=== PATIENT | female | born 1975 | race Caucasian/White ===

== ENCOUNTER 2016-12-04 14:09 | Emergency (ER) | payer OTHER ==
[~2016-12-04 14:09] MED LIST: ALBUTEROL IN200 PUFF INH; ALBUTEROL0.63 MG/3 NEB; CHILDRENS CHEWA81 MG PO; CLARITIN10 MG PO; COREG6.25 MG PO; HYDROCHLOROTH12.5 MG PO; LASIX40 MG PO; LEVAQUIN500 MG PO; LIPITOR10 MG PO; MAGNESIUM OXID400 MG PO; MS CONTIN15 MG PO; NEURONTIN800 MG PO; NITROGLYCERIN0.4 MG SL; NORVASC5 MG PO; PERCOCET 10-321 EACH PO; SINGULAIR10 MG PO; SPIRONOLACTONE25 MG PO; SYMBICORT 16060 PUFF INH; THEOPHYLLINE C300 MG PO; TYLENOL325 M1 PO; VALIUM5 MG PO; ZANTAC300 MG PO; ZEBETA5 MG PO; ZESTRIL40 MG PO; ZOCOR10 MG PO; ZOFRAN4 MG PO
[2016-12-04 14:40] LABS: BASO % 0.8 % (0.1-1.2); EOS # 0.1 10_X3_uL (0.0-0.4); EOS % 1.3 % (0.7-5.8); GRAN % 52.4 % (34.0-71.1); HEMATOCRIT 35.3 % (34-45); HEMOGLOBIN 11.9 g/dL (11.2-15.7); LYMPH # 1.2 10_X3_uL (1.2-3.7); LYMPH % 32.5 % (19.3-51.7); MEAN CORPUSCULAR HGB CONC 33.7 g/dL (32.0-36.0); MEAN CORPUSCULAR VOLUME 85.9 fL (79-95); MEAN PLATELET VOLUME 10.3 fl (7.5-11.5); MONO # 0.5 10_X3_uL (0.2-0.9); PLATELET COUNT 196 x10_3/uL (182-369); RED BLOOD COUNT 4.11 x10_6/uL (3.9-5.2); RED CELL DISTRIBUTION WIDTH 14.5 % (11.7-14.4); WHITE BLOOD COUNT 3.8 x10_3/uL (4.0-10.0)
[2016-12-04 14:53] LABS: PARTIAL THROMBOPLASTIN TIME 25.2 SECONDS (21.3-29.3); PROTHROMBIN TIME (PATIENT) 10.4 SECONDS (9.9-11.1)
[2016-12-04 14:54] LABS: ALBUMIN 3.7 gm/dL (3.4-5.0); ALKALINE PHOSPHATASE 64 U/L (50-136); ALT/SGPT 16 U/L (3.5-33.9); AMYLASE 33 U/L (15.62-74.58); AST/SGOT 16 U/L (7.04-26.96); BILIRUBIN,TOTAL 0.25 mg/dL (0.0-1.0); BLOOD UREA NITROGEN 8 mg/dL (7-18); CALCIUM 9.1 mg/dL (8.7-10.7); CARBON DIOXIDE 20 mmol/L (21-32); CREATININE 0.6 mg/dL (0.6-1.3); GLUCOSE,RANDOM 131 mg/dL (70-99); LIPASE 14 U/L (6.75-60.75); POTASSIUM 3.7 mmol/L (3.5-5.1); SODIUM 140 mmol/L (136-145); TOTAL PROTEIN 7.6 gm/dL (6.4-8.2)
== END 2016-12-04 17:13 | disposition home or self-care (01) ==
LOC: ER 14:09
PROVIDERS: Emergency Medicine
DX: K92.0 Hematemesis (principal); R19.04 Left lower quadrant abdominal swelling, mass and lump; I10 Essential (primary) hypertension; J45.909 Unspecified asthma, uncomplicated; Z95.810 Presence of automatic (implantable) cardiac defibrillator; Z88.0 Allergy status to penicillin
CPT/HCPCS: 36415; 80053; 82150; 83690; 85025; 85610; 85730; 96372; 99283-25

== ENCOUNTER 2016-12-10 12:45 | Emergency (ER) | payer OTHER | END 2016-12-10 14:48 | disposition home or self-care (01) | LOC: ER 12:45 | DX: M17.12 Unilateral primary osteoarthritis, left knee (principal); M25.562 Pain in left knee; M25.462 Effusion, left knee | CPT/HCPCS: 73700; 81025; 96372; 99070; 99283-25; J1170 ==

== ENCOUNTER 2017-02-19 12:00 | Emergency (ER) | payer OTHER | END 2017-02-19 15:05 | disposition home or self-care (01) | LOC: ER 12:00 | DX: M25.562 Pain in left knee (principal); W19.XXXA Unspecified fall, initial encounter; Y92.009 Unspecified place in unspecified non-institutional (private) residence as the place of occurrence of the external cause; I10 Essential (primary) hypertension; Z98.890 Other specified postprocedural states; Z79.899 Other long term (current) drug therapy; Z88.0 Allergy status to penicillin | CPT/HCPCS: 96374; 96375; 96376; 99070; 99283-25 ==

== ENCOUNTER 2017-03-05 16:27 | Emergency (ER) | payer OTHER | END 2017-03-05 21:11 | disposition home or self-care (01) | LOC: ER 16:27 | DX: M25.562 Pain in left knee (principal); R51 Headache; I10 Essential (primary) hypertension; Z76.5 Malingerer [conscious simulation]; Z88.0 Allergy status to penicillin | CPT/HCPCS: 96372; 99282-25 ==

== ENCOUNTER 2017-03-19 12:35 | Emergency (ER) | payer OTHER | END 2017-03-19 13:47 | disposition home or self-care (01) | LOC: ER 12:35 | DX: M54.5 Low back pain (principal); M25.562 Pain in left knee; Z98.890 Other specified postprocedural states; X50.0XXA Overexertion from strenuous movement or load, initial encounter; Z79.899 Other long term (current) drug therapy; Z88.0 Allergy status to penicillin | CPT/HCPCS: 99282 ==

== ENCOUNTER 2017-03-22 21:24 | Observation (INO) | payer OTHER ==
[~2017-03-22] VITALS: Ht 165.1 cm; Wt 117.0 kg
[2017-03-23 00:30] LABS: BASO # 0.1 10_X3_uL (0.0-0.1); BASO % 0.5 % (0.1-1.2); EOS # 0.1 10_X3_uL (0.0-0.4); EOS % 0.9 % (0.7-5.8); GRAN # 6.4 10_X3_uL (1.6-6.1); GRAN % 65.8 % (34.0-71.1); HEMATOCRIT 34.3 % (34-45); HEMOGLOBIN 11.4 g/dL (11.2-15.7); LYMPH # 2.4 10_X3_uL (1.2-3.7); LYMPH % 24.2 % (19.3-51.7); MEAN CORPUSCULAR HEMOGLOBIN 28.8 pg (27.0-33.0); MEAN CORPUSCULAR HGB CONC 33.2 g/dL (32.0-36.0); MEAN CORPUSCULAR VOLUME 86.6 fL (79-95); MEAN PLATELET VOLUME 9.9 fl (7.5-11.5); MONO # 0.8 10_X3_uL (0.2-0.9); MONO % 8.6 % (4.7-12.5); PLATELET COUNT 307 x10_3/uL (182-369); RED BLOOD COUNT 3.96 x10_6/uL (3.9-5.2); RED CELL DISTRIBUTION WIDTH 15.3 % (11.7-14.4); WHITE BLOOD COUNT 9.7 x10_3/uL (4.0-10.0)
[2017-03-23 00:45] LABS: ALBUMIN 3.8 gm/dL (3.4-5.0); ALKALINE PHOSPHATASE 61 U/L (50-136); ALT/SGPT 8 U/L (3.5-33.9); AST/SGOT 9 U/L (7.04-26.96); BILIRUBIN,TOTAL 0.25 mg/dL (0.0-1.0); BLOOD UREA NITROGEN 15 mg/dL (7-18); CALCIUM 9.6 mg/dL (8.7-10.7); CARBON DIOXIDE 24 mmol/L (21-32); CREATINE KINASE 27 U/L (21-215); CREATININE 0.8 mg/dL (0.6-1.3); GLUCOSE,RANDOM 114 mg/dL (70-99); POTASSIUM 3.7 mmol/L (3.5-5.1); SODIUM 142 mmol/L (136-145); TOTAL PROTEIN 6.9 gm/dL (6.4-8.2)
[2017-03-23 09:10] LABS: BASO % 0.4 % (0.1-1.2); EOS # 0.1 10_X3_uL (0.0-0.4); EOS % 1.4 % (0.7-5.8); GRAN # 5.1 10_X3_uL (1.6-6.1); GRAN % 61.4 % (34.0-71.1); HEMATOCRIT 35.1 % (34-45); HEMOGLOBIN 11.6 g/dL (11.2-15.7); LYMPH # 2.3 10_X3_uL (1.2-3.7); LYMPH % 27.7 % (19.3-51.7); MEAN CORPUSCULAR HEMOGLOBIN 28.7 pg (27.0-33.0); MEAN CORPUSCULAR VOLUME 86.9 fL (79-95); MEAN PLATELET VOLUME 9.8 fl (7.5-11.5); MONO # 0.8 10_X3_uL (0.2-0.9); MONO % 9.1 % (4.7-12.5); PLATELET COUNT 272 x10_3/uL (182-369); RED BLOOD COUNT 4.04 x10_6/uL (3.9-5.2); RED CELL DISTRIBUTION WIDTH 15.4 % (11.7-14.4); WHITE BLOOD COUNT 8.3 x10_3/uL (4.0-10.0)
[2017-03-23 09:25] LABS: ALBUMIN 3.7 gm/dL (3.4-5.0); ALKALINE PHOSPHATASE 62 U/L (50-136); ALT/SGPT 8 U/L (3.5-33.9); AST/SGOT 9 U/L (7.04-26.96); BILIRUBIN,TOTAL 0.25 mg/dL (0.0-1.0); BLOOD UREA NITROGEN 13 mg/dL (7-18); CALCIUM 9.4 mg/dL (8.7-10.7); CARBON DIOXIDE 25 mmol/L (21-32); CKMB < 1.0 ng/ml (0.0-5.0); CREATININE 0.8 mg/dL (0.6-1.3); GLUCOSE,RANDOM 104 mg/dL (70-99); POTASSIUM 3.6 mmol/L (3.5-5.1); SODIUM 142 mmol/L (136-145); TOTAL PROTEIN 6.6 gm/dL (6.4-8.2); TROP-I < 0.30 NG/ML (0.00-0.30)
[2017-03-23 16:34] LABS: CKMB < 1.0 ng/ml (0.0-5.0); TROP-I < 0.30 NG/ML (0.00-0.30)
[2017-03-24 00:56] LABS: CKMB < 1.0 ng/ml (0.0-5.0); TROP-I < 0.30 NG/ML (0.00-0.30)
[2017-03-24 07:03] LABS: HEMATOCRIT 35.8 % (34-45); HEMOGLOBIN 11.7 g/dL (11.2-15.7); MEAN CORPUSCULAR HEMOGLOBIN 28.5 pg (27.0-33.0); MEAN CORPUSCULAR HGB CONC 32.7 g/dL (32.0-36.0); MEAN CORPUSCULAR VOLUME 87.3 fL (79-95); MEAN PLATELET VOLUME 9.9 fl (7.5-11.5); RED BLOOD COUNT 4.1 x10_6/uL (3.9-5.2); RED CELL DISTRIBUTION WIDTH 15.3 % (11.7-14.4); WHITE BLOOD COUNT 7.4 x10_3/uL (4.0-10.0)
[2017-03-24 07:06] LABS: ALBUMIN 3.6 gm/dL (3.4-5.0); ALKALINE PHOSPHATASE 62 U/L (50-136); ALT/SGPT 7 U/L (3.5-33.9); AST/SGOT 8 U/L (7.04-26.96); BILIRUBIN,TOTAL 0.36 mg/dL (0.0-1.0); BLOOD UREA NITROGEN 17 mg/dL (7-18); CALCIUM 9.2 mg/dL (8.7-10.7); CARBON DIOXIDE 24 mmol/L (21-32); CREATININE 0.9 mg/dL (0.6-1.3); GLUCOSE,RANDOM 94 mg/dL (70-99); SODIUM 139 mmol/L (136-145); TOTAL PROTEIN 6.6 gm/dL (6.4-8.2)
[2017-03-24 07:52] LABS: CKMB < 1.0 ng/ml (0.0-5.0); TROP-I < 0.30 NG/ML (0.00-0.30)
[2017-03-24 11:57] LABS: CKMB < 1.0 ng/ml (0.0-5.0); TROP-I < 0.30 NG/ML (0.00-0.30)
[2017-03-25 06:47] LABS: HEMATOCRIT 35.4 % (34-45); HEMOGLOBIN 11.8 g/dL (11.2-15.7); MEAN CORPUSCULAR HEMOGLOBIN 28.6 pg (27.0-33.0); MEAN CORPUSCULAR HGB CONC 33.3 g/dL (32.0-36.0); MEAN CORPUSCULAR VOLUME 85.9 fL (79-95); MEAN PLATELET VOLUME 9.5 fl (7.5-11.5); RED BLOOD COUNT 4.12 x10_6/uL (3.9-5.2); WHITE BLOOD COUNT 9.1 x10_3/uL (4.0-10.0)
[2017-03-25 06:59] LABS: BLOOD UREA NITROGEN 21 mg/dL (7-18); CARBON DIOXIDE 21 mmol/L (21-32); GLUCOSE,RANDOM 190 mg/dL (70-99); POTASSIUM 4.4 mmol/L (3.5-5.1); SODIUM 138 mmol/L (136-145)
== END 2017-03-25 13:13 | disposition home or self-care (01) ==
LOC: ER 21:24 → MS 03-23 00:31
PROVIDERS: Internal Medicine; ADMIT Family Medicine
DX: I16.0 Hypertensive urgency (principal); I11.0 Hypertensive heart disease with heart failure; R07.89 Other chest pain; J01.90 Acute sinusitis, unspecified; R00.2 Palpitations; R51 Headache; G89.4 Chronic pain syndrome; F41.9 Anxiety disorder, unspecified; F32.9 Major depressive disorder, single episode, unspecified; R42 Dizziness and giddiness; R63.4 Abnormal weight loss; M79.605 Pain in left leg; M25.50 Pain in unspecified joint; M54.9 Dorsalgia, unspecified; R06.2 Wheezing; T44.5X6A Underdosing of predominantly beta-adrenoreceptor agonists, initial encounter; Z91.128 Patient's intentional underdosing of medication regimen for other reason; Z79.899 Other long term (current) drug therapy; Z88.0 Allergy status to penicillin; Z79.3 Long term (current) use of hormonal contraceptives; Z95.0 Presence of cardiac pacemaker; Z83.3 Family history of diabetes mellitus; Z80.6 Family history of leukemia; Z86.14 Personal history of Methicillin resistant Staphylococcus aureus infection; Z80.0 Family history of malignant neoplasm of digestive organs; Z68.41 Body mass index [BMI] 40.0-44.9, adult
CPT/HCPCS: 36415; 70450; 71010; 71250; 80048; 80053; 80198; 82550; 82553; 85025; 93005; 93041; 96372; 96374; 96375; 96376; 99070; 99285-25; G0378; J1170; J2930